=== PATIENT | male | born 1970 ===

== ENCOUNTER 2018-03-05 10:48 | Emergency (ER) | payer OTHER ==
[2018-03-05 10:52] VITALS: BMI 25.7
[2018-03-05 10:54] VITALS: O2SAT 98
[2018-03-05] MEDS ORDERED: Sodium Chloride 0.9% 1,000 ML IV STA (11:13)
--- NOTE | 2018-03-05 11:22 | ED PDOC ---
HPI: General Adult Time Seen by Provider: 03/05/18 11:02 Chief Complaint (Nursing): Weakness/Neurological Deficit Chief Complaint (Provider): Weakness History Per: Patient History/Exam Limitations: no limitations Onset/Duration Of Symptoms: Intermittent Episodes (x2 years) Current Symptoms Are (Timing): Intermittent Episodes Additional Complaint(s): Shawn Bullard is a 47 year old male presenting for evaluation of intermittent weakness x2 years. Patient states he was diagnosed with diabetes 2 years ago, but after his initial treatment did not take any medications for the past 2 years. Patient is also complaining of polyuria, polydipsia, and occasional vomiting. Past Medical History Reviewed: Historical Data, Nursing Documentation, Vital Signs Vital Signs: Last Vital Signs Temp 97.9 F 03/05/18 10:53 Pulse 79 03/05/18 10:53 Resp 18 03/05/18 10:53 BP 151/96 H 03/05/18 10:53 Pulse Ox 98 03/05/18 10:53 - Medical History PMH: Diabetes - Surgical History Surgical History: No Surg Hx - Family History Family History: States: Unknown Family Hx - Home Medications Home Medications: Ambulatory Orders Medication Instructions Recorded metFORMIN [glucOPHAGE] 500 mg PO BID #30 tab 03/05/18 - Allergies Allergies/Adverse Reactions: Allergies Allergy/AdvReac Type Severity Reaction Status Date / Time No Known Allergies Allergy Verified 03/05/18 11:13 Review of Systems ROS Statement: Except As Marked, All Systems Reviewed And Found Negative Constitutional: Positive for: Weakness, Other (polydipsia) Gastrointestinal: Positive for: Vomiting Genitourinary Male: Positive for: Other (polyuria) Physical Exam - Reviewed Nursing Documentation Reviewed: Yes Vital Signs Reviewed: Yes - Physical Exam Appears: Positive for: Non-toxic, No Acute Distress Head Exam: Positive for: ATRAUMATIC, NORMAL INSPECTION, NORMOCEPHALIC Skin: Positive for: Normal Color, Warm, Dry. Negative for: Rash Eye Exam: Positive for: EOMI, Normal appearance, PERRL ENT: Positive for: Other (mucous membranes dry) Neck: Positive for: Normal, Painless ROM, Supple Cardiovascular/Chest: Positive for: Regular Rate, Rhythm. Negative for: Murmur Respiratory: Positive for: Normal Breath Sounds. Negative for: Respiratory Distress Gastrointestinal/Abdominal: Positive for: Normal Exam, Soft. Negative for: Tenderness Back: Positive for: Normal Inspection. Negative for: L CVA Tenderness, R CVA Tenderness, Vertebral Tenderness Extremity: Positive for: Normal ROM. Negative for: Pedal Edema, Calf Tenderness, Deformity Neurologic/Psych: Positive for: Alert, Oriented (x3). Negative for: Motor/Sensory Deficits - Laboratory Results Result Diagrams: 03/05/18 11:30 03/05/18 11:30 - ECG O2 Sat by Pulse Oximetry: 98 (RA) Pulse Ox Interpretation: Normal Medical Decision Making Medical Decision Making: Plan: Accucheck at 268 mg/dL. 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 Will obtain labs and IV fluids. Will treat accordingly. -CMP -CBC -1L NS IV at 250cc/hr -Reevaluation Scribe Attestation: Documented by Yang Tucker, acting as a scribe for Kirk De Oliveira MD. Provider Scribe Attestation: All medical record entries made by the Scribe were at my direction and personally dictated by me. I have reviewed the chart and agree that the record accurately reflects my personal performance of the history, physical exam, medical decision making, and the department course for this patient. I have also personally directed, reviewed, and agree with the discharge instructions and disposition. Disposition - Clinical Impression Clinical Impression: Diabetes mellitus - Patient ED Disposition Is Patient to be Admitted: No Counseled Patient/Family Regarding: Studies Performed, Diagnosis, Need For Followup, Rx Given - Disposition Referrals: [facility] [Outside] Disposition: Routine/Home Disposition Time: 12:28 Condition: FAIR Prescriptions: metFORMIN [glucOPHAGE] 500 mg PO BID #30 tab Instructions: Type 2 Diabetes Forms: [employer] (Albanian) Print Language: MAURITANIAN
[2018-03-05 11:56] LABS: BASO % 0.4 % (0.0-2.0); EOS # 0.1 K/uL (0.0-0.7); EOS % 1.5 % (0.0-4.0); HEMOGLOBIN 16.9 g/dL (12.0-18.0); LYMPH # 1.6 K/uL (1.0-4.3); LYMPH % 42.8 % (20.0-40.0); MEAN CELL VOLUME 96.9 fl (80.0-94.0); MEAN CORPUSCULAR HEMOGLOBIN 32.5 pg (27.0-31.0); MEAN CORPUSCULAR HGB CONC 33.6 g/dL (33.0-37.0); MONO # 0.3 K/uL (0.0-0.8); MONO % 6.7 % (0.0-10.0); NEUT # 1.8 K/uL (1.8-7.0); NEUT % 48.6 % (50.0-75.0); NRBC % 0.7 % (0.0-0.0); RBC 5.18 Mil/uL (4.40-5.90); RED CELL DISTRIBUTION WIDTH 12.4 % (11.5-14.5); WHITE BLOOD COUNT 3.8 K/uL (4.8-10.8)
[2018-03-05 12:19] LABS: ALB/GLOB RATIO 1.1 (1.0-2.1); ALBUMIN 4.4 g/dL (3.5-5.0); ALT/SGPT 57 U/L (21-72); AST/SGOT 41 U/L (17-59); BLOOD UREA NITROGEN 19 mg/dl (9-20); GFR NON-AFRICAN AMERICAN > 60
[2018-03-05 12:52] VITALS: BP 128/76; PULSE 78; RESP 19; TEMP 97.6
== END 2018-03-05 12:53 | disposition home or self-care (01) ==
LOC: H.ER 10:48
DX: E11.9 Type 2 diabetes mellitus without complications (principal)
CPT/HCPCS: 80053; 82948; 85025; 99283; J7030

== ENCOUNTER 2018-07-30 22:59 | Inpatient (IN) | payer MEDICAID, OTHER ==
[2018-07-30 23:00] VITALS: BMI 25.7
[2018-07-30] MEDS ORDERED: Sodium Chloride 0.9% 1,000 ML IV STA (23:54)
--- NOTE | 2018-07-30 23:57 | ED PDOC ---
HPI: General Adult Time Seen by Provider: 07/30/18 23:45 Chief Complaint (Nursing): Abdominal Pain Chief Complaint (Provider): fever History Per: Patient History/Exam Limitations: no limitations Onset/Duration Of Symptoms: Days (2) Current Symptoms Are (Timing): Still Present Additional Complaint(s): 47 y/o male presents for evaluation of fever x 2 days. Associated bodyaches, abdominal pain, and nausea with 7 episodes of vomiting. + dysuria x 3 days. Denies headache, congestion, cough, chest pain, shortness of breath, palpitations, changes in bowel movements, hematuria, recent travel, sick contacts. Last dose of Tylenol taken at 15:00 Past Medical History Reviewed: Historical Data, Nursing Documentation, Vital Signs Vital Signs: Last Vital Signs Temp 102.9 F H 07/30/18 23:16 Pulse 126 H 07/30/18 23:16 Resp 18 07/30/18 23:16 BP 123/71 07/30/18 23:16 Pulse Ox 96 07/30/18 23:16 Primary Care Provider: FAMILY PROVIDER,NO - Medical History PMH: Diabetes - Surgical History Surgical History: No Surg Hx - Family History Family History: States: Unknown Family Hx - Living Arrangements Living Arrangements: With Family - Home Medications Home Medications: Ambulatory Orders Medication Instructions Recorded metFORMIN [glucOPHAGE] 500 mg PO BID #30 tab 03/05/18 - Allergies Allergies/Adverse Reactions: Allergies Allergy/AdvReac Type Severity Reaction Status Date / Time No Known Allergies Allergy Verified 03/05/18 11:13 Review of Systems ROS Statement: Except As Marked, All Systems Reviewed And Found Negative Constitutional: Positive for: Fever Gastrointestinal: Positive for: Nausea, Vomiting, Abdominal Pain Physical Exam - Reviewed Nursing Documentation Reviewed: Yes Vital Signs Reviewed: Yes - Physical Exam Appears: Positive for: Well, Non-toxic, No Acute Distress Head Exam: Positive for: ATRAUMATIC, NORMAL INSPECTION, NORMOCEPHALIC Skin: Positive for: Normal Color Eye Exam: Positive for: Normal appearance ENT: Positive for: Normal ENT Inspection Cardiovascular/Chest: Positive for: Regular Rate, Rhythm Respiratory: Positive for: Normal Breath Sounds Gastrointestinal/Abdominal: Positive for: Bowel Sounds, Soft, Tenderness (diffuse) Back: Positive for: Normal Inspection Extremity: Positive for: Normal ROM Neurological/Psych: Positive for: Awake, Alert, Oriented (x3) - Laboratory Results Result Diagrams: 07/31/18 00:10 07/31/18 00:10 - ECG ECG: Positive for: Viewed By Me (reviewed by ED attending) ECG Rhythm: Positive for: Sinus Rhythm O2 Sat by Pulse Oximetry: 96 - Radiology X-Ray: Viewed By Me X-Ray Interpretation: No Acute Disease - Progress ED Course And Treament: -cbc -cmp -lactic acid -blood cultures -urinalysis -urine culture -IV NS bolus -IV zofran -PO ibuprofen -CT abd/pelvis CT SCAN OF THE ABDOMEN AND PELVIS WITH CONTRAST. CLINICAL HISTORY: Abdominal pain. TECHNIQUE: Multiple axial and coronal CT images were obtained through the abdomen and pelvis after administration of intravenous contrast material. COMMENTS: Mild cardiomegaly. Bilateral basilar hypoventilatory pulmonary changes. 4.1x2.9 cm left ureterocele. Bilateral fat containing inguinal hernias without incarceration. Uncomplicated colonic diverticulosis. Moderate amount of fecal residue in the large bowels. Mild left hydroureteronephrosis. Diffuse thickening of the bladder suggestive of cystitis. Diffuse left urothelial thickening suggestive of an ascending urinary tract infection. Heterogeneous nephrogram of the left kidney suggestive of multifocal uncomplicated pyelonephritis without associated fluid collection or drainable abscess formation. The liver is of uniform attenuation without mass or defect. There is no intra or extrahepatic biliary ductal dilatation. The spleen is normal. The gallbladder is within normal limits. The pancreas is of normal contour and attenuation characteristics. There is no evidence of adrenal mass. There is no evidence of renal or ureteral mass. No renal or ureteral calculi are identified. There is no right hydroureter or hydronephrosis. No evidence for appendicitis. There is no bowel wall thickening. No evidence for small or large bowel obstruction. There is no evidence of abdominal ascites or lymphadenopathy. There is no evidence of intrinsic or extrinsic bladder mass. There is no pelvic ascites or lymphadenopathy. Images of the lung bases show no evidence of pleural or parenchymal mass. There are no pleural effusions. The bony structures are free of lytic or blastic lesions. IMPRESSION: Mild cardiomegaly. Bilateral basilar hypoventilatory pulmonary changes. 4.1x2.9 cm left ureterocele. Bilateral fat containing inguinal hernias without incarceration. Uncomplicated colonic diverticulosis. Moderate amount of fecal residue in the large bowels. Mild left hydroureteronephrosis. Diffuse thickening of the bladder suggestive of cystitis. Diffuse left urothelial thickening suggestive of an ascending urinary tract infection. Heterogeneous nephrogram of the left kidney suggestive of multifocal uncomplicated pyelonephritis without associated fluid collection or drainable abscess formation. IV rocephin ordered Case discussed with Dr. Braden, hospitalist on-call, for admission Disposition - Clinical Impression Clinical Impression: Sepsis, Pyelonephritis, Hyperglycemia - Patient ED Disposition Is Patient to be Admitted: Yes - Disposition Disposition Time: 02:15 Condition: FAIR
[2018-07-31 00:32] LABS: BASO # 0.1 K/uL (0.0-0.2); BASO % 0.3 % (0.0-2.0); HEMOGLOBIN 13.9 g/dL (12.0-18.0); LYMPH # 0.7 K/uL (1.0-4.3); LYMPH % 3.8 % (20.0-40.0); MEAN CELL VOLUME 90.9 fl (80.0-94.0); MEAN CORPUSCULAR HEMOGLOBIN 31.1 pg (27.0-31.0); MEAN CORPUSCULAR HGB CONC 34.3 g/dL (33.0-37.0); MEAN PLATELET VOLUME 7.6 fl (7.2-11.7); NEUT # 17.9 K/uL (1.8-7.0); NEUT % 90.9 % (50.0-75.0); PLATELET COUNT 234 K/uL (130-400); RBC 4.45 Mil/uL (4.40-5.90); WHITE BLOOD COUNT 19.6 K/uL (4.8-10.8)
[2018-07-31 00:35] LABS: URINE BACTERIA MANY (<OCC); URINE BILIRUBIN NEGATIVE (NEGATIVE); URINE BLOOD SMALL (NEGATIVE); URINE CLARITY TURBID (Clear); URINE COLOR AMBER (YELLOW); URINE GLUCOSE (UA) >=500 mg/dL (NEGATIVE); URINE LEUKOCYTE ESTERASE LARGE Leu/uL (Negative); URINE PROTEIN 100 mg/dL (NEGATIVE); WBC CLUMPS FEW /hpf
[2018-07-31 00:41] LABS: ALT/SGPT 22 U/L (21-72); AST/SGOT 24 U/L (17-59); BLOOD UREA NITROGEN 15 mg/dl (9-20); CALCIUM 8.5 mg/dL (8.4-10.2); GFR NON-AFRICAN AMERICAN > 60; LIPASE 52 U/L (23-300)
[2018-07-31] MEDS ORDERED: Iohexol 300 100 ML IJ ONE (01:09)
[2018-07-31] MEDS ORDERED: Sodium Chloride 0.9% 50 ML IV ONE (01:09)
[2018-07-31 01:25] LABS: LYMPHOCYTE 3 % (20-50); MONOCYTE 6 % (0-10); NEUTROPHIL 91 % (42-75); TOTAL CELLS COUNTED 100
[2018-07-31 01:26] LABS: PLATELET ESTIMATE NORMAL (NORMAL)
[2018-07-31] MEDS ORDERED: cefTRIAXone (Rocephin) 1 gm Inj ONE (02:19)
[2018-07-31] MEDS ORDERED: Sodium Chloride 0.9% 1,000 ML IV STA (02:21)
[2018-07-31] MEDS ORDERED: Sodium Chloride 0.9% 1,000 ML IV SCH ×2 (02:30→06:15)
[2018-07-31] MEDS ORDERED: Glucagon Recombinant 1 mg Inj IM PRN (02:54)
[2018-07-31] MEDS ORDERED: Dextrose 50% SYRINGE Inj (50 ml) IV PRN (02:54)
--- NOTE | 2018-07-31 03:03 | CP.PCM.HP ---
<Joann Melchor - Last Filed: 07/31/18 03:19> History of Present Illness - History of Present Illness History of Present Illness: CC: n/v, fever and abd pain HPI: 47 YO Male with PMHx of NIDDM presents to the ED for n/v, fevers and abdominal pain. Patient states that his symptoms initially started with dysuria and urinary frequency 5 days ago, he ignored them and they persisted. In the past 48 hrs, he started having fevers and chills throughout the day, and eventually started throwing up (2x thus far NBNB, food) and started having suprapubic pain. He said his symptom persisted and he started feeling fatigue and generalized body aches. No similar symptoms in the past, no hospitalizations. Denies chest pain, dyspnea, cough, palpitations. Voyce [id number] PMhx: NIDDM SurgHx: denies FHx: mother with DM SHx: , by bedside, denies ETOH, smoking and illicit drug use NKDA Meds: Metformin 500mg po BID Present on Admission - Present on Admission Any Indicators Present on Admission: No Review of Systems - Constitutional Constitutional: Chills, Fever, Malaise - Cardiovascular Cardiovascular: absent: Chest Pain, Dyspnea, Palpitations - Respiratory Respiratory: absent: Cough, Dyspnea - Gastrointestinal Gastrointestinal: Abdominal Pain, Nausea, Vomiting. absent: Diarrhea - Genitourinary Genitourinary: Difficulty Urinating, Dysuria, Urinary Frequency - Neurological Neurological: Headaches Past Patient History - Past Social History Smoking Status: Never Smoked Alcohol: None Drugs: Denies Home Situation {Lives}: With Family - ENDOCRINE/METABOLIC Hx Diabetes Mellitus Type 1: Yes - PSYCHIATRIC Hx Substance Use: No - SURGICAL HISTORY Hx Surgeries: No - ANESTHESIA Hx Anesthesia: No Meds Allergies/Adverse Reactions: Allergies Allergy/AdvReac Type Severity Reaction Status Date / Time No Known Allergies Allergy Verified 03/05/18 11:13 Physical Exam - Constitutional Appears: No Acute Distress, Other (clammy ) - Head Exam Head Exam: NORMAL INSPECTION - Eye Exam Eye Exam: EOMI, Normal appearance - ENT Exam ENT Exam: Mucous Membranes Dry - Respiratory Exam Respiratory Exam: Clear to Auscultation Bilateral, NORMAL BREATHING PATTERN. absent: Wheezes - Cardiovascular Exam Cardiovascular Exam: Tachycardia, +S1, +S2 - GI/Abdominal Exam GI & Abdominal Exam: Distended (obese ), Normal Bowel Sounds, Soft, Tenderness (suprapubic tenderness ). absent: Guarding, Rigid - Extremities Exam Extremities exam: Positive for: normal inspection. Negative for: calf ten derness, pedal edema - Back Exam Back exam: NORMAL INSPECTION. absent: CVA tenderness (L), CVA tenderness (R) - Neurological Exam Neurological exam: Alert, Oriented x3 - Psychiatric Exam Psychiatric exam: Normal Affect, Normal Mood - Skin Skin Exam: Normal Color, Warm Additional comments: chronic hyper/hypopigmentation in the lower ext b/l Results - Vital Signs Recent Vital Signs: Last Vital Signs Temp 99.6 F 07/31/18 02:22 Pulse 100 H 07/31/18 02:22 Resp 18 07/31/18 02:22 BP 90/52 L 07/31/18 02:22 Pulse Ox 97 07/31/18 02:22 - Labs Result Diagrams: 07/31/18 00:10 07/31/18 00:10 Labs: Laboratory Results - last 24 hr 07/31/18 07/31/18 07/31/18 00:10 00:10 00:10 WBC 19.6 H D RBC 4.45 Hgb 13.9 D Hct 40.5 MCV 90.9 D MCH 31.1 H MCHC 34.3 RDW 13.0 Plt Count 234 MPV 7.6 Neut % (Auto) 90.9 H Lymph % (Auto) 3.8 L Letcher % (Auto) 5.0 Eos % (Auto) 0.0 Baso % (Auto) 0.3 Neut # (Auto) 17.9 H Lymph # (Auto) 0.7 L Letcher # (Auto) 1.0 H Eos # (Auto) 0.0 Baso # (Auto) 0.1 Neutrophils % (Manual) 91 H Lymphocytes % (Manual) 3 L Monocytes % (Manual) 6 Platelet Estimate Normal RBC Morphology Normal Sodium 134 Potassium 3.5 L Chloride 94 L Carbon Dioxide 24 Anion Gap 20 BUN 15 Creatinine 0.7 L Est GFR ( Amer) > 60 Est GFR (Non-Af Amer) > 60 Random Glucose 262 H Lactic Acid Calcium 8.5 Total Bilirubin 1.1 AST 24 ALT 22 Alkaline Phosphatase 94 Total Protein 8.2 Albumin 4.0 Globulin 4.2 H Albumin/Globulin Ratio 1.0 Lipase 52 Urine Color Urine Clarity Urine pH Ur Specific [place] Urine Protein Urine Glucose (UA) Urine Ketones Urine Blood Urine Nitrate Urine Bilirubin Urine Urobilinogen Ur Leukocyte Esterase Urine RBC (Auto) Urine WBC Clumps (Auto) Urine Microscopic WBC Urine Bacteria Influenza Typ A,B (EIA) Negative for flu a/b 07/31/18 07/31/18 00:10 00:10 WBC RBC Hgb Hct MCV MCH MCHC RDW Plt Count MPV Neut % (Auto) Lymph % (Auto) Letcher % (Auto) Eos % (Auto) Baso % (Auto) Neut # (Auto) Lymph # (Auto) Letcher # (Auto) Eos # (Auto) Baso # (Auto) Neutrophils % (Manual) Lymphocytes % (Manual) Monocytes % (Manual) Platelet Estimate RBC Morphology Sodium Potassium Chloride Carbon Dioxide Anion Gap BUN Creatinine Est GFR ( Amer) Est GFR (Non-Af Amer) Random Glucose Lactic Acid 1.6 Calcium Total Bilirubin AST ALT Alkaline Phosphatase Total Protein Albumin Globulin Albumin/Globulin Ratio Lipase Urine Color Christelle Urine Clarity Turbid Urine pH 6.0 Ur Specific [place] 1.029 Urine Protein 100 Urine Glucose (UA) >=500 Urine Ketones 20 Urine Blood Small Urine Nitrate Negative Urine Bilirubin Negative Urine Urobilinogen 4.0 Ur Leukocyte Esterase Large Urine RBC (Auto) 12 H Urine WBC Clumps (Auto) Few H Urine Microscopic WBC 1628 H Urine Bacteria Many H Influenza Typ A,B (EIA) Assessment & Plan - Assessment and Plan (Free Text) Assessment: Assessment/Plan: 47 YO Male with PMHx of NIDDM is admitted for acute pylonephrtis and sepsis. Sepsis -likely 2/2 to UTI/pylo -fever, tachycardia, leukocytosis with known source of infection -c/w IV fluids -c/w Antibiotics for UTI sepsis-will start Unasyn to cover for gram + and gram - -adjust abx once cx are back -ID consulted, follow up recs -procalcitonin ordered, follow up Acute pyelonephritis -CT abd and pelvis sig for left kidney suggestive of multifocal uncomplicated pyelonephritis without associated fluid collection or drainable abscess, Mild left hydroureteronephrosis. -urology consulted; follow up recs -IV fluids -IV antibiotics -pain management NIDDM -chronic -follow up hbA1c level -hold Metformin now given contrast -start low dose insulin sliding scale -hypoglycemia protocol Hypokalemia -mild -will replace PO -follow up DVT prolx -Lovenox SC <Ra Braden A - Last Filed: 07/31/18 04:38> Results - Vital Signs Recent Vital Signs: Last Vital Signs Temp 99.6 F 07/31/18 02:22 Pulse 100 H 07/31/18 02:22 Resp 18 07/31/18 02:22 BP 90/52 L 07/31/18 02:22 Pulse Ox 97 07/31/18 02:22 - Labs Result Diagrams: 07/31/18 00:10 07/31/18 00:10 Labs: Laboratory Results - last 24 hr 07/31/18 07/31/18 07/31/18 00:10 00:10 00:10 WBC 19.6 H D RBC 4.45 Hgb 13.9 D Hct 40.5 MCV 90.9 D MCH 31.1 H MCHC 34.3 RDW 13.0 Plt Count 234 MPV 7.6 Neut % (Auto) 90.9 H Lymph % (Auto) 3.8 L Letcher % (Auto) 5.0 Eos % (Auto) 0.0 Baso % (Auto) 0.3 Neut # (Auto) 17.9 H Lymph # (Auto) 0.7 L [place] # (Auto) 1.0 H Eos # (Auto) 0.0 Baso # (Auto) 0.1 Neutrophils % (Manual) 91 H Lymphocytes % (Manual) 3 L Monocytes % (Manual) 6 Platelet Estimate Normal RBC Morphology Normal Sodium 134 Potassium 3.5 L Chloride 94 L Carbon Dioxide 24 Anion Gap 20 BUN 15 Creatinine 0.7 L Est GFR ( Amer) > 60 Est GFR (Non-Af Amer) > 60 Random Glucose 262 H Lactic Acid Calcium 8.5 Total Bilirubin 1.1 AST 24 ALT 22 Alkaline Phosphatase 94 Total Protein 8.2 Albumin 4.0 Globulin 4.2 H Albumin/Globulin Ratio 1.0 Lipase 52 Urine Color Urine Clarity Urine pH Ur Specific [place] Urine Protein Urine Glucose (UA) Urine Ketones Urine Blood Urine Nitrate Urine Bilirubin Urine Urobilinogen Ur Leukocyte Esterase Urine RBC (Auto) Urine WBC Clumps (Auto) Urine Microscopic WBC Urine Bacteria Influenza Typ A,B (EIA) Negative for flu a/b 07/31/18 07/31/18 00:10 00:10 WBC RBC Hgb Hct MCV MCH MCHC RDW Plt Count MPV Neut % (Auto) Lymph % (Auto) Letcher % (Auto) Eos % (Auto) Baso % (Auto) Neut # (Auto) Lymph # (Auto) [place] # (Auto) Eos # (Auto) Baso # (Auto) Neutrophils % (Manual) Lymphocytes % (Manual) Monocytes % (Manual) Platelet Estimate RBC Morphology Sodium Potassium Chloride Carbon Dioxide Anion Gap BUN Creatinine Est GFR ( Amer) Est GFR (Non-Af Amer) Random Glucose Lactic Acid 1.6 Calcium Total Bilirubin AST ALT Alkaline Phosphatase Total Protein Albumin Globulin Albumin/Globulin Ratio Lipase Urine Color Christelle Urine Clarity Turbid Urine pH 6.0 Ur Specific [place] 1.029 Urine Protein 100 Urine Glucose (UA) >=500 Urine Ketones 20 Urine Blood Small Urine Nitrate Negative Urine Bilirubin Negative Urine Urobilinogen 4.0 Ur Leukocyte Esterase Large Urine RBC (Auto) 12 H Urine WBC Clumps (Auto) Few H Urine Microscopic WBC 1628 H Urine Bacteria Many H Influenza Typ A,B (EIA) Attending/Attestation - Attestation I have personally seen and examined this patient.: Yes I have fully participated in the care of the patient.: Yes I have reviewed all pertinent clinical information: Yes Notes (Text): 07/31/18 04:24 I saw, examined and discussed this patient with Dr Melchor. I agree with the assessment and plan outlined which reflect my direct input. This is a 47 years old male with hx of DM II and has had urinary retention 2 weeks prior to this admission which appeared to have improved. Over the past 5 days he is with dysuria and frequency, with fever, vomiting and lower abdominal pain within the past [address] scan showed evidence of Pyelonephritis, Cystitis and Hydroureteronephrosis. The patient has Sepsis evident by Leucocytosis, Fever, Tachycardia and Pyelonephritis Follow blood and Urine cultures ID consulted For Pyelonephritis and Cystitis with a negative Nitrite Urinalysis, We will treat with Unasyn and Cefepime Consult Urology for Left Hydroureteronephrosis Treat DM II and Hypokalemia Ra Braden MD
[2018-07-31] MEDS ORDERED: Potassium Chloride 20 mEq ER Tab PO ONE (03:16)
[2018-07-31] MEDS: Sodium Chloride 0.9% 1,000 ML IV SCH ×6 (03:35→23:30)
[2018-07-31 06:14] LABS: BASO % 0.2 % (0.0-2.0); EOS % 0.1 % (0.0-4.0); HEMOGLOBIN 12.3 g/dL (12.0-18.0); LYMPH # 1.2 K/uL (1.0-4.3); LYMPH % 8.5 % (20.0-40.0); MEAN CELL VOLUME 90.9 fl (80.0-94.0); MEAN CORPUSCULAR HEMOGLOBIN 31.7 pg (27.0-31.0); MEAN CORPUSCULAR HGB CONC 34.9 g/dL (33.0-37.0); MEAN PLATELET VOLUME 7.3 fl (7.2-11.7); MONO # 0.7 K/uL (0.0-0.8); MONO % 5.1 % (0.0-10.0); NEUT # 11.8 K/uL (1.8-7.0); NEUT % 86.1 % (50.0-75.0); RBC 3.87 Mil/uL (4.40-5.90); RED CELL DISTRIBUTION WIDTH 12.7 % (11.5-14.5); WHITE BLOOD COUNT 13.7 K/uL (4.8-10.8)
[2018-07-31 06:24] LABS: BLOOD UREA NITROGEN 13 mg/dl (9-20); CALCIUM 7.4 mg/dL (8.4-10.2); GFR NON-AFRICAN AMERICAN > 60
[2018-07-31] MEDS: Enoxaparin 40 mg Syringe SC SCH (08:57)
[2018-07-31] MEDS: Insulin Regular 100 units/ml SC SCH ×4 (09:00→22:32)
[2018-07-31] MEDS: Cefepime 2 GM in Sodium Chloride 0.9% 100 ML IVPB SCH ×2 (10:47→20:49)
--- NOTE | 2018-07-31 11:19 | RAD ---
Date of service: 07/31/2018 HISTORY: admit COMPARISON: No prior. TECHNIQUE: 1 view obtained. FINDINGS: LUNGS: No active pulmonary disease. PLEURA: No significant pleural effusion identified, no pneumothorax apparent. CARDIOVASCULAR: No aortic atherosclerotic calcification present. Normal cardiac size. No pulmonary vascular congestion. OSSEOUS STRUCTURES: No significant abnormalities. VISUALIZED UPPER ABDOMEN: Normal. OTHER FINDINGS: None. IMPRESSION: No active disease.
--- NOTE | 2018-07-31 11:48 | CARD ---
APPROVED REPORT Date of service: 07/31/2018 EKG Measurement Heart [id number] <Conclusion> Normal sinus rhythm Normal ECG
--- NOTE | 2018-07-31 11:58 | CT ---
Date of service: 07/31/2018 PROCEDURE: CT Abdomen and Pelvis with contrast HISTORY: fever, abd pain, vomiting COMPARISON: None. TECHNIQUE: Contrast dose: 90 mL Omnipaque 300 Radiation dose: Total exam DLP = 592.86 mGy-cm. This CT exam was performed using one or more of the following dose reduction techniques: Automated exposure control, adjustment of the mA and/or kV according to patient size, and/or use of iterative reconstruction technique. FINDINGS: LOWER THORAX: Unremarkable. LIVER: Mild hepatomegaly. Smooth contour. No mass. No biliary dilatation. Normal attenuation. GALLBLADDER AND BILE DUCTS: Unremarkable. PANCREAS: Unremarkable. No gross lesion or ductal dilatation. SPLEEN: Unremarkable. ADRENALS: Unremarkable. No mass. KIDNEYS AND URETERS: Multiple focal areas of poor cortical enhancement in the left kidney consistent with pyelonephritis. No abscess. No hydronephrosis. Mild left hydroureter. There is a left ureterocele protruding into the urinary bladder, measuring approximately 4.1 cm at the current level of distention. There is a suspected small right ureterocele as well. No right pyelonephritis. No right hydroureter. There is a small simple cyst in the upper pole right kidney measuring 10 mm. There is no renal calculus. VASCULATURE: Unremarkable. No aortic aneurysm. No aortic atherosclerotic calcification or mural plaque present. BOWEL: Unremarkable. No obstruction. No gross mural thickening. APPENDIX: Normal appendix. PERITONEUM: No ascites or pneumoperitoneum. Umbilical hernia containing mesenteric fat with mild protrusion of the apex of the sigmoid loop into the hernia without full herniation.. LYMPH NODES: Unremarkable. No enlarged lymph nodes. BLADDER: Left ureterocele and probable small right ureterocele.. Thickened bladder wall anteriorly consistent with cystitis. No perivesical inflammatory change noted. No mass identified. REPRODUCTIVE: Normal prostate BONES: No acute fracture. OTHER FINDINGS: None. IMPRESSION: Left pyelonephritis. Cystitis. Probable bilateral ureterocele. Mild left hydroureter without hydronephrosis. Additional nonacute findings as above. The preliminary findings for this examination were reported by [facility] Radiology at 1:50 a.m. on 07/31/2018. There is concurrence of this report with the preliminary findings.
--- NOTE | 2018-07-31 12:00 | CP.PCM.PN ---
Subjective - Date & Time of Evaluation Date of Evaluation: 07/31/18 Time of Evaluation: 11:57 - Subjective Subjective: Pt examined chart reviewed.A left pylo congenital ureterovele bilat. Suggest Since pt is improving clinically await C&S results adjust antibiotics accordingly. Refer for urological eval of ureterocele on discharge. Will not re eval. unless called. Bakari Objective - Vital Signs/Intake and Output Vital Signs (last 24 hours): Temp Pulse Resp BP Pulse Ox 98.1 F 82 20 97/64 L 96 07/31/18 08:25 07/31/18 08:25 07/31/18 08:25 07/31/18 08:25 07/31/18 08:25 - Medications Medications: Current Medications Acetaminophen (Tylenol 325mg Tab) 650 mg PO Q6 PRN PRN Reason: Headache Acetaminophen (Tylenol 325mg Tab) 650 mg PO Q6 PRN PRN Reason: Fever >100.4 F Dextrose (Dextrose 50% Inj) 0 ml IV STAT PRN; Protocol PRN Reason: Hypoglycemia Protocol Dextrose (Glutose 15) 0 gm PO ONCE PRN; Protocol PRN Reason: Hypoglycemia Protocol Enoxaparin Sodium (Lovenox) 40 mg SC DAILY [facility]; Protocol Last Admin: 07/31/18 08:57 Dose: Not Given Glucagon (Glucagen Diagnostic Kit) 0 mg IM STAT PRN; Protocol PRN Reason: Hypoglycemia Protocol Sodium Chloride (Sodium Chloride 0.9%) 1,000 mls @ 999 mls/hr IV .Q1H1M [facility] Stop: 08/01/18 02:46 Last Admin: 07/31/18 03:35 Dose: 999 mls/hr Ampicillin Sodium/Sulbactam (Sodium 3 gm/ Sodium Chloride) 100 mls @ 100 mls/hr IVPB Q6 [facility]; Protocol Last Admin: 07/31/18 10:52 Dose: 100 mls/hr Cefepime HCl 2 gm/ Sodium (Chloride) 100 mls @ 100 mls/hr IVPB Q12 [facility]; [place] col Last Admin: 07/31/18 10:47 Dose: 100 mls/hr Sodium Chloride (Sodium Chloride 0.9%) 1,000 mls @ 120 mls/hr IV .Q8H20M [facility] Stop: 07/31/18 14:34 Last Admin: 07/31/18 07:00 Dose: 120 mls/hr Insulin Detemir (Levemir) 6 units SC HS [facility] Insulin Human Regular (Humulin R) 0 units SC ACHS [facility]; Protocol Ketorolac Tromethamine (Toradol) 30 mg IVP Q6 PRN PRN Reason: Pain, moderate (4-7) Morphine Sulfate (Morphine) 2 mg IVP Q6 PRN PRN Reason: Pain, severe (8-10) Ondansetron HCl (Zofran Inj) 4 mg IVP Q6 PRN PRN Reason: Nausea/Vomiting - Labs Labs: 07/31/18 06:00 07/31/18 06:00
[2018-07-31] MEDS ORDERED: Insulin Detemir 100 Units/ml Inj SC SCH (22:00)
[2018-08-01] MEDS: Sodium Chloride 0.9% 1,000 ML IV SCH ×3 (00:30→02:25)
[2018-08-01] MEDS: Cefepime 2 GM in Sodium Chloride 0.9% 100 ML IVPB SCH (08:11)
[2018-08-01] MEDS: Enoxaparin 40 mg Syringe SC SCH (08:12)
[2018-08-01] MEDS: Insulin Regular 100 units/ml SC SCH ×4 (08:13→21:34)
--- NOTE | 2018-08-01 09:28 | CARD ---
APPROVED REPORT Date of service: 08/01/2018 EXAM: Two-dimensional and M-mode echocardiogram with Doppler and color Doppler. Other Information Quality : GoodRhythm : NSR INDICATION Infection: 2D DIMENSIONS IVSd0.91 (0.7-1.1cm)LVDd4.87 (3.9-5.9cm) LVOT Diameter2.17 (1.8-2.4cm)PWd0.77 (0.7-1.1cm) IVSs1.40 (0.8-1.2cm)LVDs3.53 (2.5-4.0cm) FS (%) 27.5 %PWs1.22 (0.8-1.2cm) M-Mode DIMENSIONS Left Atrium (MM)4.38 (2.5-4.0cm)IVSd0.77 (0.7-1.1cm) Aortic Root3.61 (2.2-3.7cm)LVDd5.90 (4.0-5.6cm) Aortic Cusp Exc.2.43 (1.5-2.0cm)PWd0.94 (0.7-1.1cm) IVSs1.38 cmFS (%) 36 % LVDs3.78 (2.0-3.8cm)PWs1.24 cm Aortic Valve AoV Peak Xlkuvuak758.6cm/sAoV VTI26.2cmAO Peak GR.9mmHg LVOT Peak Fvbtoowh130.8cm/sLVOT VTI20.33cmAO Mean GR.5mmHg JEFFREY (VMAX)1.49kh1XID (VTI)1.44cm2 Mitral Valve MV E Nlpcdmun30.6cm/sMV DECEL QFNS169byJR A Ejmhsbvv74.3cm/s MV UHJ35vpO/A ratio0.8MVA (PHT)3.52cm2 TDI Lateral E' Peak V10.43cm/sMedial E' Peak V8.39cm/sE/Lateral E'6.8 E/Medial E'8.4 Tricuspid Valve TR Peak Bgqajved641mj/sRAP BXDJMUGH74mqBqLL Peak Gr.22mmHg RRPB10pkKe LEFT VENTRICLE The left ventricle is normal size. There is normal left ventricular wall thickness. The left ventricular systolic function is normal. The estimated ejection fraction is 55-60% No regional wall motion abnormalities noted.. Transmitral Doppler flow pattern is Grade I-abnormal relaxation pattern. No left ventricle thrombus noted on this study. There is no ventricular septal defect visualized. There is no left ventricular aneurysm. There is no mass noted in the left ventricle. RIGHT VENTRICLE The right ventricle is normal size. There is normal right ventricular wall thickness. The right ventricular systolic function is normal. ATRIA The left atrium is mildly dilated. The right atrium size is normal. The interatrial septum is intact with no evidence for an atrial septal defect. AORTIC VALVE The aortic valve is normal in structure. No aortic regurgitation is present. There is no aortic valvular stenosis. There is no aortic valvular vegetation. MITRAL VALVE The mitral valve is normal in structure. There is no evidence of mitral valve prolapse. There is no mitral valve stenosis. There is trace mitral valve regurgitation noted. TRICUSPID VALVE The tricuspid valve is normal in structure. There is mild tricuspid valve regurgitation noted. RVSP is calculated at 28 mm Hg. There is no tricuspid valve prolapse or vegetation. There is no tricuspid valve stenosis. PULMONIC VALVE The pulmonary valve is normal in structure. There is no pulmonic valvular regurgitation. There is no pulmonic valvular stenosis. GREAT VESSELS The aortic root is normal in size. The ascending aorta is normal in size. The pulmonary artery is normal. The IVC is normal in size and collapses >50% with inspiration. PERICARDIAL EFFUSION There is no pericardial effusion. There is no pleural effusion. <Conclusion> The estimated ejection fraction is 55-60% Transmitral Doppler flow pattern is Grade I-abnormal relaxation pattern. The left atrium is mildly dilated. There is trace mitral valve regurgitation noted. There is mild tricuspid valve regurgitation noted. RVSP is calculated at 28 mm Hg. No evidence of vegetations on this study. Correlate clinically.
--- NOTE | 2018-08-01 10:25 | CP.PCM.PN ---
Subjective - Date & Time of Evaluation Date of Evaluation: 08/01/18 Time of Evaluation: 10:23 - Subjective Subjective: Patient seen and examined at bedside. Denies any complaints. Denies dysuria, frequency, urgency, chills, abdominal pain. Tolerating PO without vomitus. No acute overnight events. Hemodynamically stbale. Objective - Vital Signs/Intake and Output Vital Signs (last 24 hours): Temp Pulse Resp BP Pulse Ox 110.4 F H 85 20 120/79 96 08/01/18 08:10 08/01/18 07:40 08/01/18 07:40 08/01/18 07:40 08/01/18 07:40 - Medications Medications: Current Medications Acetaminophen (Tylenol 325mg Tab) 650 mg PO Q6 PRN PRN Reason: Headache Acetaminophen (Tylenol 325mg Tab) 650 mg PO Q6 PRN PRN Reason: Fever >100.4 F Last Admin: 08/01/18 08:10 Dose: 650 mg Dextrose (Dextrose 50% Inj) 0 ml IV STAT PRN; Protocol PRN Reason: Hypoglycemia Protocol Dextrose (Glutose 15) 0 gm PO ONCE PRN; Protocol PRN Reason: Hypoglycemia Protocol Enoxaparin Sodium (Lovenox) 40 mg SC DAILY [facility]; Protocol Last Admin: 08/01/18 08:12 Dose: 40 mg Glucagon (Glucagen Diagnostic Kit) 0 mg IM STAT PRN; Protocol PRN Reason: Hypoglycemia Protocol Cefepime HCl 2 gm/ Sodium (Chloride) 100 mls @ 100 mls/hr IVPB Q12 [facility]; Protocol Last Admin: 08/01/18 08:11 Dose: 100 mls/hr Insulin Detemir (Levemir) 10 units SC [facility] Insulin Human Regular (Humulin R) 0 units SC [facility]; Protocol Last Admin: 08/01/18 08:13 Dose: 2 units Ketorolac Tromethamine (Toradol) 30 mg IVP Q6 PRN PRN Reason: Pain, moderate (4-7) Last Admin: 07/31/18 20:30 Dose: 30 mg Morphine Sulfate (Morphine) 2 mg IVP Q6 PRN PRN Reason: Pain, severe (8-10) Last Admin: 07/31/18 16:50 Dose: 2 mg Ondansetron HCl (Zofran Inj) 4 mg IVP Q6 PRN PRN Reason: Nausea/Vomiting Last Admin: 08/01/18 08:17 Dose: 4 mg - Labs Labs: 07/31/18 06:00 07/31/18 06:00 - Constitutional Appears: Non-toxic, No Acute Distress - Head Exam Head Exam: NORMAL INSPECTION - Eye Exam Eye Exam: Normal appearance - ENT Exam ENT Exam: Mucous Membranes Moist - Respiratory Exam Respiratory Exam: Clear to Ausculation Bilateral, NORMAL BREATHING PATTERN. absent: Accessory Muscle Use, Chest Wall Tenderness, Decreased Breath Sounds, Prolonged Expiratory Phase, Rales, Rhonchi, Wheezes, Respiratory Distress, Stridor - Cardiovascular Exam Cardiovascular Exam: REGULAR RHYTHM, +S1, +S2 - GI/Abdominal Exam GI & Abdominal Exam: Soft, Normal Bowel Sounds. absent: Distended, Firm, Guarding, Rigid, Tenderness, Rebound - Extremities Exam Extremities Exam: Full ROM, Normal Capillary Refill, Normal Inspection. absent: Calf Tenderness, Joint Swelling, Pedal Edema, Tenderness Additional comments: Chronic lower extremity skin changes present on admission. - Neurological Exam Neurological Exam: Alert, Awake, Oriented x3 - Psychiatric Exam Psychiatric exam: Normal Affect, Normal Mood - Skin Skin Exam: Dry, Intact, Normal Color, Warm Assessment and Plan - Assessment and Plan (Free Text) Assessment: 47 yo Male with history of NIDDM is admitted for acute pylonephrtis and sepsis. During hospital admission, patient has been recieving Cefepime, Blood cultures evident for gram negative rods, pending organism and sensitivities. Echocardiogram performed - no vegetations noted, EF 55-60%. Once organism and sensitivies are available, will change antibiotic therapy as appropriate. Discharge planning- will need 10 days of antibiotic therapy outpatient. Plan: Sepsis -likely secondary to UTI/pylo -c/w IV fluids -c/w Cefepime - Blood cultures - growing Gram negative Fadi; f/u organism and sensitivities -ID consulted, follow up recs -procalcitonin - 2.78 - ECHO: no vegetations noted; Acute pyelonephritis -CT abd and pelvis sig for left kidney suggestive of multifocal uncomplicated p yelonephritis without associated fluid collection or drainable abscess, Mild left hydroureteronephrosis. -urology consulted for ureterocele- no intervention at this time, can be followed outpatient. -IV fluids -IV antibiotics -pain management NIDDM -chronic -hbA1c- 9.3 -hold Metformin now given contrast -start low dose insulin sliding scale - Levemir 10 u SC -hypoglycemia protocol Hypokalemia -mild -will replace PO -follow up DVT prolx -Lovenox SC
--- NOTE | 2018-08-01 11:17 | CP.PCM.CON ---
History of Present Illness - History of Present Illness History of Present Illness: 47 y old with NIDDM with symptoms of dysuria for the past week, which are now better. Past Patient History - Past Medical History & Family History Past Medical History?: Yes - Past Social History Smoking Status: Never Smoked - ENDOCRINE/METABOLIC Hx Diabetes Mellitus Type 1: Yes - MUSCULOSKELETAL/RHEUMATOLOGICAL Hx Falls: No - PSYCHIATRIC Hx Substance Use: No - SURGICAL HISTORY Hx Surgeries: No - ANESTHESIA Hx Anesthesia: No Meds Allergies/Adverse Reactions: Allergies Allergy/AdvReac Type Severity Reaction Status Date / Time No Known Allergies Allergy Verified 03/05/18 11:13 - Medications Medications: Current Medications Acetaminophen (Tylenol 325mg Tab) 650 mg PO Q6 PRN PRN Reason: Headache Acetaminophen (Tylenol 325mg Tab) 650 mg PO Q6 PRN PRN Reason: Fever >100.4 F Last Admin: 08/01/18 08:10 Dose: 650 mg Dextrose (Dextrose 50% Inj) 0 ml IV STAT PRN; Protocol PRN Reason: Hypoglycemia Protocol Dextrose (Glutose 15) 0 gm PO ONCE PRN; Protocol PRN Reason: Hypoglycemia Protocol Enoxaparin Sodium (Lovenox) 40 mg SC DAILY [facility]; Protocol Last Admin: 08/01/18 08:12 Dose: 40 mg Glucagon (Glucagen Diagnostic Kit) 0 mg IM STAT PRN; Protocol PRN Reason: Hypoglycemia Protocol Cefepime HCl 2 gm/ Sodium (Chloride) 100 mls @ 100 mls/hr IVPB Q12 [facility]; Protocol Last Admin: 08/01/18 08:11 Dose: 100 mls/hr Insulin Detemir (Levemir) 10 units SC [facility] Insulin Human Regular (Humulin R) [address] [facility]; Protocol Last Admin: 08/01/18 08:13 Dose: 2 units Ketorolac Tromethamine (Toradol) 30 mg IVP Q6 PRN PRN Reason: Pain, moderate (4-7) Last Admin: 07/31/18 20:30 Dose: 30 mg Morphine Sulfate (Morphine) 2 mg IVP Q6 PRN PRN Reason: Pain, severe (8-10) Last Admin: 07/31/18 16:50 Dose: 2 mg Ondansetron HCl (Zofran Inj) 4 mg IVP Q6 PRN PRN Reason: Nausea/Vomiting Last Admin: 08/01/18 08:17 Dose: 4 mg Physical Exam - GI/Abdominal Exam Additional comments: CVA tenderness + Results - Vital Signs Recent Vital Signs: Last Vital Signs Temp 110.4 F H 08/01/18 08:10 Pulse 85 08/01/18 07:40 Resp 20 08/01/18 07:40 BP 120/79 08/01/18 07:40 Pulse Ox 96 08/01/18 07:40 - Labs Result Diagrams: 07/31/18 06:00 07/31/18 06:00 Labs: Laboratory Results - last 24 hr 07/31/18 07/31/18 07/31/18 00:10 03:02 06:00 POC Glucose (mg/dL) Hemoglobin A1c 9.3 H Procalcitonin 2.78 H B-Hydroxybutyrate 0.22 07/31/18 07/31/18 07/31/18 11:55 16:07 22:00 POC Glucose (mg/dL) 314 H 282 H 236 H Hemoglobin A1c Procalcitonin B-Hydroxybutyrate 08/01/18 05:38 POC Glucose (mg/dL) 208 H Hemoglobin A1c Procalcitonin B-Hydroxybutyrate Assessment & Plan - Assessment and Plan (Free Text) Assessment: Pyelonephritis with bacteremia and urine culture positive. Awaiting organism and sensitivities. Since this is a first time community acquired infection, Rocephin 2g iv od should be sufficient. d/c Cefepime
[2018-08-01 12:33] LABS: HEMOGLOBIN 13.3 g/dL (12.0-18.0); MEAN CELL VOLUME 91.7 fl (80.0-94.0); MEAN CORPUSCULAR HEMOGLOBIN 31.7 pg (27.0-31.0); MEAN CORPUSCULAR HGB CONC 34.6 g/dL (33.0-37.0); RBC 4.19 Mil/uL (4.40-5.90); WHITE BLOOD COUNT 9.4 K/uL (4.8-10.8)
[2018-08-01] MEDS ORDERED: Potassium Chloride 20 mEq/15 ml LIQ UD PO ONE (12:38)
[2018-08-01 12:47] LABS: BLOOD UREA NITROGEN 15 mg/dl (9-20); GFR NON-AFRICAN AMERICAN > 60
[2018-08-01] MEDS: cefTRIAXone 2 GM in Sodium Chloride 0.9% 100 ML IVPB SCH (13:33)
[2018-08-01] MEDS: Insulin Detemir 100 Units/ml Inj SC SCH (21:35)
[2018-08-02 00:40] VITALS: RESP 18
[2018-08-02 06:31] LABS: HEMOGLOBIN 12.6 g/dL (12.0-18.0); MEAN CELL VOLUME 90.5 fl (80.0-94.0); MEAN CORPUSCULAR HEMOGLOBIN 30.9 pg (27.0-31.0); MEAN CORPUSCULAR HGB CONC 34.1 g/dL (33.0-37.0); RBC 4.08 Mil/uL (4.40-5.90); RED CELL DISTRIBUTION WIDTH 12.9 % (11.5-14.5); WHITE BLOOD COUNT 7.3 K/uL (4.8-10.8)
[2018-08-02 06:34] LABS: BLOOD UREA NITROGEN 15 mg/dl (9-20); CALCIUM 7.7 mg/dL (8.4-10.2); GFR NON-AFRICAN AMERICAN > 60
--- NOTE | 2018-08-02 07:37 | CP.PCM.DIS ---
Provider - Provider Date of Admission: 07/31/18 02:24 Attending physician: Ra Braden Consults: 07/31/18 07:00 Infectious Disease Consult Routine Comment: Consulting Provider: Juan Carlos Sahni Consulting Physician: Juan Carlos Sahni Reason for Consult: Pylonephritis in 47YO Male with NIDDM Urology Consult Routine Comment: Consulting Provider: Stevenson Villegas Jr. Consulting Physician: Stevenson Villegas Jr. Reason for Consult: left hydroureteronephrosis, and pylonephritis Time Spent in preparation of Discharge (in minutes): 30 Hospital Course - Lab Results Lab Results: Micro Results 07/31/18 00:10 Blood-Venous Blood Culture - Final Klebsiella Pneumoniae Ssp Pneu 07/31/18 00:10 Blood-Venous Gram Stain - Final 07/31/18 00:20 Blood-Venous Blood Culture - Final Klebsiella Pneumoniae Ssp Pneu 07/31/18 00:20 Blood-Venous Gram Stain - Final 07/31/18 00:10 Urine,Clean Catch Urine Culture - Final Klebsiella Pneumoniae Ssp Pneu Most Recent Lab Values WBC 7.3 K/uL (4.8-10.8) 08/02/18 05:05 RBC 4.08 Mil/uL (4.40-5.90) L 08/02/18 05:05 Hgb 12.6 g/dL (12.0-18.0) 08/02/18 05:05 Hct 36.9 % (35.0-51.0) 08/02/18 05:05 MCV 90.5 fl (80.0-94.0) 08/02/18 05:05 MCH 30.9 pg (27.0-31.0) 08/02/18 05:05 MCHC 34.1 g/dL (33.0-37.0) 08/02/18 05:05 RDW 12.9 % (11.5-14.5) 08/02/18 05:05 Plt Count 235 K/uL (130-400) 08/02/18 05:05 MPV 7.3 fl (7.2-11.7) 07/31/18 06:00 Neut % (Auto) 86.1 % (50.0-75.0) H 07/31/18 06:00 Lymph % (Auto) 8.5 % (20.0-40.0) L 07/31/18 06:00 [place] % (Auto) 5.1 % (0.0-10.0) 07/31/18 06:00 Eos % (Auto) 0.1 % (0.0-4.0) 07/31/18 06:00 Baso % (Auto) 0.2 % (0.0-2.0) 07/31/18 06:00 Neut # (Auto) 11.8 K/uL (1.8-7.0) H 07/31/18 06:00 Lymph # (Auto) 1.2 K/uL (1.0-4.3) 07/31/18 06:00 Bladen # (Auto) 0.7 K/uL (0.0-0.8) 07/31/18 06:00 Eos # (Auto) 0.0 K/uL (0.0-0.7) 07/31/18 06:00 Baso # (Auto) 0.0 K/uL (0.0-0.2) 07/31/18 06:00 Neutrophils % (Manual) 91 % (42-75) H 07/31/18 00:10 Lymphocytes % (Manual) 3 % (20-50) L 07/31/18 00:10 Monocytes % (Manual) 6 % (0-10) 07/31/18 00:10 Platelet Estimate Normal (NORMAL) 07/31/18 00:10 RBC Morphology Normal (NORMAL) 07/31/18 00:10 Sodium 133 mmol/l (132-148) 08/02/18 05:05 Potassium 3.7 MMOL/L (3.6-5.0) 08/02/18 05:05 Chloride 99 mmol/L (98-107) 08/02/18 05:05 Carbon Dioxide 27 mmol/L (22-30) 08/02/18 05:05 Anion Gap 11 (10-20) 08/02/18 05:05 BUN 15 mg/dl (9-20) 08/02/18 05:05 Creatinine 0.5 mg/dl (0.8-1.5) L 08/02/18 05:05 Est GFR ( Amer) > 60 08/02/18 05:05 Est GFR (Non-Af Amer) > 60 08/02/18 05:05 POC Glucose (mg/dL) 191 mg/dL (65-110) H 08/02/18 05:28 Random Glucose 207 mg/dL (75-110) H 08/02/18 05:05 Hemoglobin A1c 9.3 % (4.2-6.5) H 07/31/18 00:10 Lactic Acid 1.6 mmol/L (0.7-2.1) 07/31/18 00:10 Calcium 7.7 mg/dL (8.4-10.2) L 08/02/18 05:05 Magnesium 1.9 MG/DL (1.6-2.3) 07/31/18 06:00 Total Bilirubin 1.1 mg/dl (0.2-1.3) 07/31/18 00:10 AST 24 U/L (17-59) 07/31/18 00:10 ALT 22 U/L (21-72) 07/31/18 00:10 Alkaline Phosphatase 94 U/L (38-126) 07/31/18 00:10 Total Protein 8.2 G/DL (6.3-8.2) 07/31/18 00:10 Albumin 4.0 g/dL (3.5-5.0) 07/31/18 00:10 Globulin 4.2 gm/dL (2.2-3.9) H 07/31/18 00:10 Albumin/Globulin Ratio 1.0 (1.0-2.1) 07/31/18 00:10 Lipase 52 U/L (23-300) 07/31/18 00:10 Procalcitonin 2.78 NG/ML (0.19-0.49) H 07/31/18 03:02 Urine Color Christelle (YELLOW) 07/31/18 00:10 Urine Clarity Turbid (Clear) 07/31/18 00:10 Urine pH 6.0 (5.0-8.0) 07/31/18 00:10 Ur Specific [place] 1.029 (1.003-1.030) 07/31/18 00:10 Urine Protein 100 mg/dL (NEGATIVE) 07/31/18 00:10 Urine Glucose (UA) >=500 mg/dL (NEGATIVE) 07/31/18 00:10 Urine Ketones 20 mg/dL (NEGATIVE) 07/31/18 00:10 Urine Blood Small (NEGATIVE) 05/24/19 00:10 Urine Nitrate Negative (NEGATIVE) 07/31/18 00:10 Urine Bilirubin Negative (NEGATIVE) 07/31/18 00:10 Urine Urobilinogen 4.0 mg/dL (0.2-1.0) 07/31/18 00:10 Ur Leukocyte Esterase Large Jose/uL (Negative) 07/31/18 00:10 Urine RBC (Auto) 12 /hpf (0-3) H 07/31/18 00:10 Urine WBC Clumps (Auto) Few /hpf (NONE) H 07/31/18 00:10 Urine Microscopic WBC 1628 /hpf (0-5) H 07/31/18 00:10 Urine Bacteria Many (<OCC) H 07/31/18 00:10 B-Hydroxybutyrate 0.22 mM (0.02-0.27) 07/31/18 06:00 Influenza Typ A,B (EIA) Negative for flu a/b (NEGATIVE) 07/31/18 00:10 Discharge Exam - Head Exam Head Exam: NORMAL INSPECTION Discharge Plan - Discharge Medications Prescriptions: cefTRIAXone [Rocephin] 2 gm IVPB DAILY #10 vial metFORMIN [glucOPHAGE] 850 mg PO BID #60 tab - Follow Up Plan Condition: FAIR Disposition: HOME/ ROUTINE Instructions: Urinary Tract Infection, Adult (DC), Sepsis, Adult (DC) Referrals: [facility] [Provider Group] Stevenson Villegas Jr., MD [Staff Provider] -
[2018-08-02] MEDS: cefTRIAXone 2 GM in Sodium Chloride 0.9% 100 ML IVPB SCH (08:50)
[2018-08-02] MEDS: Insulin Regular 100 units/ml SC SCH ×4 (08:52→22:06)
[2018-08-02] MEDS: Enoxaparin 40 mg Syringe SC SCH (08:53)
--- NOTE | 2018-08-02 13:43 | CP.PCM.PN ---
Subjective - Date & Time of Evaluation Date of Evaluation: 08/02/18 Time of Evaluation: 08:40 - Subjective Subjective: Patient seen and examined at bedside. Reports back and suprapubic pain. States he has not had a BM in 3 days. Objective - Vital Signs/Intake and Output Vital Signs (last 24 hours): Temp Pulse Resp BP Pulse Ox 98.2 F 75 18 116/76 97 08/02/18 07:39 08/02/18 07:39 08/02/18 07:39 08/02/18 07:39 08/02/18 07:39 Intake and Output: 08/02/18 08/02/18 06:59 18:59 Intake Total 750 Balance 750 - Medications Medications: Current Medications Acetaminophen (Tylenol 325mg Tab) 650 mg PO Q6 PRN PRN Reason: Headache Acetaminophen (Tylenol 325mg Tab) 650 mg PO Q6 PRN PRN Reason: Fever >100.4 F Last Admin: 08/01/18 08:10 Dose: 650 mg Dextrose (Dextrose 50% Inj) 0 ml IV STAT PRN; Protocol PRN Reason: Hypoglycemia Protocol Dextrose (Glutose 15) 0 gm PO ONCE PRN; Protocol PRN Reason: Hypoglycemia Protocol Enoxaparin Sodium (Lovenox) 40 mg SC DAILY [facility]; Protocol Last Admin: 08/02/18 08:53 Dose: 40 mg Glucagon (Glucagen Diagnostic Kit) 0 mg IM STAT PRN; Protocol PRN Reason: Hypoglycemia Protocol Ceftriaxone Sodium 2 gm/ (Sodium Chloride) 100 mls @ 100 mls/hr IVPB DAILY [facility]; Protocol Last Admin: 08/02/18 08:50 Dose: 100 mls/hr Insulin Detemir (Levemir) 10 units SC [facility] Last Admin: 08/01/18 21:35 Dose: 10 units Insulin Human Regular (Humulin R) 0 units SC [facility]; Protocol Last Admin: 08/02/18 08:52 Dose: 1 units Ketorolac Tromethamine (Toradol) 30 mg IVP Q6 PRN PRN Reason: Pain, moderate (4-7) Last Admin: 08/01/18 17:30 Dose: 30 mg Lactulose (Enulose) 20 gm PO DAILY PRN PRN Reason: Constipation Morphine Sulfate (Morphine) 2 mg IVP Q6 PRN PRN Reason: Pain, severe (8-10) Last Admin: 08/02/18 08:46 Dose: 2 mg Ondansetron HCl (Zofran Inj) 4 mg IVP Q6 PRN PRN Reason: Nausea/Vomiting Last Admin: 08/01/18 08:17 Dose: 4 mg - Labs Labs: 08/02/18 05:05 08/02/18 05:05 - Constitutional Appears: In Acute Distress - Eye Exam Eye Exam: Normal appearance - ENT Exam ENT Exam: Mucous Membranes Moist - Respiratory Exam Respiratory Exam: Clear to Ausculation Bilateral, NORMAL BREATHING PATTERN. absent: Accessory Muscle Use, Chest Wall Tenderness, Decreased Breath Sounds, Prolonged Expiratory Phase, Rales, Rhonchi, Wheezes, Respiratory Distress, Stridor - Cardiovascular Exam Cardiovascular Exam: +S1, +S2 - GI/Abdominal Exam GI & Abdominal Exam: Soft, Tenderness (suprapubic tenderness), Normal Bowel Sounds. absent: Distended, Firm, Guarding, Rigid, Rebound - Extremities Exam Extremities Exam: Full ROM, Normal Capillary Refill, Normal Inspection. absent: Calf Tenderness, Joint Swelling, Pedal Edema, Tenderness - Neurological Exam Neurological Exam: Alert, Awake, Oriented x3 - Psychiatric Exam Psychiatric exam: Normal Affect, Normal Mood - Skin Skin Exam: Dry, Intact, Normal Color, Warm Assessment and Plan - Assessment and Plan (Free Text) Assessment: 47 yo Male with history of NIDDM is admitted for acute pylonephrtis and sepsis. During hospital admission, patient has been recieving Cefepime, Blood cultures evident for klebsiella pneumoniae sensitive to Rocephin. Echocardiogram performed - no vegetations noted, EF 55-60%. Once organism and sensitivies are available, will change antibiotic therapy as appropriate. Discharge planning- will need 10 days of antibiotic therapy outpatient- understands that he will return to the ED to recieve Rocephin 2 g IV for a total of 10 days outpatient treatment. Plan: Sepsis -likely 2/2 to UTI/pylo -c/w IV fluids -s/p Cefepime; C/W Rocephin 2 g IV at this time (will need 10 days outpatient treatment) - Blood cultures - klebsiella pneumoniae sensitive to Rocephin -ID consulted, follow up recs - ECHO: no vegetations noted; Acute pyelonephritis -CT abd and pelvis sig for left kidney suggestive of multifocal uncomplicated pyelonephritis without associated fluid collection or drainable abscess, Mild left hydroureteronephrosis. -urology consulted for ureterocele- no intervention at this time, can be followed outpatient. -IV fluids -IV antibiotics -pain management NIDDM -chronic -hbA1c- 9.3 -hold Metformin now given contrast -start low dose insulin sliding scale - Levemir 10 u SC -hypoglycemia protocol Hypokalemia -mild -will replace PO -follow up DVT prolx -Lovenox SC
[2018-08-02] MEDS: POLYETHYLENE GLYCOL 3350 17 GM/Dose PACKET PO SCH (15:29)
[2018-08-02] MEDS: Insulin Detemir 100 Units/ml Inj SC SCH (22:06)
[2018-08-03 00:25] VITALS: PULSE 79
[2018-08-03 07:06] LABS: HEMOGLOBIN 12.7 g/dL (12.0-18.0); MEAN CELL VOLUME 89.6 fl (80.0-94.0); MEAN CORPUSCULAR HEMOGLOBIN 31.5 pg (27.0-31.0); MEAN CORPUSCULAR HGB CONC 35.1 g/dL (33.0-37.0); RBC 4.04 Mil/uL (4.40-5.90); RED CELL DISTRIBUTION WIDTH 12.8 % (11.5-14.5); WHITE BLOOD COUNT 7.4 K/uL (4.8-10.8)
[2018-08-03 07:45] LABS: BLOOD UREA NITROGEN 11 mg/dl (9-20); GFR NON-AFRICAN AMERICAN > 60
--- NOTE | 2018-08-03 08:11 | CP.PCM.DIS ---
Provider - Provider Date of Admission: 07/31/18 02:24 Attending physician: Ra Braden Consults: 07/31/18 07:00 Infectious Disease Consult Routine Comment: Consulting Provider: Juan Carlos Sahni Consulting Physician: Juan Carlos Sahni Reason for Consult: Pylonephritis in 47YO Male with NIDDM Urology Consult Routine Comment: Consulting Provider: Stevenson Villegas Jr. Consulting Physician: Stevenson Villegas Jr. Reason for Consult: left hydroureteronephrosis, and pylonephritis Time Spent in preparation of Discharge (in minutes): 30 Diagnosis - Discharge Diagnosis (1) Pyelonephritis Status: Acute Comment: -CT abd and pelvis sig for left kidney suggestive of multifocal uncomplicated pyelonephritis without associated fluid collection or drainable abscess, Mild left hydroureteronephrosis. -urology consulted for ureterocele- no intervention at this time, can be followed outpatient. -IV antibiotics - s/p Cefepime; C/W Rocephin 2 g IV at this time (will need 7 more days outpatient treatment) (2) NIDDY (non-insulin dependent diabetes mellitus in young) Status: Acute Comment: -chronic. -hbA1c- 9.3. Continue Metformin 850mg BID. Follow up outpatient. Hospital Course - Lab Results Lab Results: Micro Results 08/01/18 07:05 Blood-Venous Blood Culture - Preliminary NO GROWTH AFTER 24 HOURS 08/01/18 07:05 Blood-Venous Blood Culture - Preliminary NO GROWTH AFTER 24 HOURS 07/31/18 00:10 Blood-Venous Blood Culture - Final Klebsiella Pneumoniae Ssp Pneu 07/31/18 00:10 Blood-Venous Gram Stain - Final 07/31/18 00:20 Blood-Venous Blood Culture - Final Klebsiella Pneumoniae Ssp Pneu 07/31/18 00:20 Blood-Venous Gram Stain - Final 07/31/18 00:10 Urine,Clean Catch Urine Culture - Final Klebsiella Pneumoniae Ssp Pneu Most Recent Lab Values WBC 7.4 K/uL (4.8-10.8) 08/03/18 05:50 RBC 4.04 Mil/uL (4.40-5.90) L 08/03/18 05:50 Hgb 12.7 g/dL (12.0-18.0) 08/03/18 05:50 Hct 36.2 % (35.0-51.0) 08/03/18 05:50 MCV 89.6 fl (80.0-94.0) 08/03/18 05:50 MCH 31.5 pg (27.0-31.0) H 08/03/18 05:50 MCHC 35.1 g/dL (33.0-37.0) 08/03/18 05:50 RDW 12.8 % (11.5-14.5) 08/03/18 05:50 Plt Count 235 K/uL (130-400) 08/03/18 05:50 MPV 7.3 fl (7.2-11.7) 07/31/18 06:00 Neut % (Auto) 86.1 % (50.0-75.0) H 07/31/18 06:00 Lymph % (Auto) 8.5 % (20.0-40.0) L 07/31/18 06:00 [place] % (Auto) 5.1 % (0.0-10.0) 07/31/18 06:00 Eos % (Auto) 0.1 % (0.0-4.0) 07/31/18 06:00 Baso % (Auto) 0.2 % (0.0-2.0) 07/31/18 06:00 Neut # (Auto) 11.8 K/uL (1.8-7.0) H 07/31/18 06:00 Lymph # (Auto) 1.2 K/uL (1.0-4.3) 07/31/18 06:00 Hardeman # (Auto) 0.7 K/uL (0.0-0.8) 07/31/18 06:00 Eos # (Auto) 0.0 K/uL (0.0-0.7) 07/31/18 06:00 Baso # (Auto) 0.0 K/uL (0.0-0.2) 07/31/18 06:00 Neutrophils % (Manual) 91 % (42-75) H 07/31/18 00:10 Lymphocytes % (Manual) 3 % (20-50) L 07/31/18 00:10 Monocytes % (Manual) 6 % (0-10) 07/31/18 00:10 Platelet Estimate Normal (NORMAL) 07/31/18 00:10 RBC Morphology Normal (NORMAL) 07/31/18 00:10 Sodium 133 mmol/l (132-148) 08/03/18 05:50 Potassium 3.8 MMOL/L (3.6-5.0) 08/03/18 05:50 Chloride 96 mmol/L (98-107) L 08/03/18 05:50 Carbon Dioxide 28 mmol/L (22-30) 08/03/18 05:50 Anion Gap 13 (10-20) 08/03/18 05:50 BUN 11 mg/dl (9-20) 08/03/18 05:50 Creatinine 0.6 mg/dl (0.8-1.5) L 08/03/18 05:50 Est GFR ( Amer) > 60 08/03/18 05:50 Est GFR (Non-Af Amer) > 60 08/03/18 05:50 POC Glucose (mg/dL) 240 mg/dL (65-110) H 08/02/18 21:00 Random Glucose 165 mg/dL (75-110) H 08/03/18 05:50 Hemoglobin A1c 9.3 % (4.2-6.5) H 07/31/18 00:10 Lactic Acid 1.6 mmol/L (0.7-2.1) 07/31/18 00:10 Calcium 8.0 mg/dL (8.4-10.2) L 08/03/18 05:50 Magnesium 1.9 MG/DL (1.6-2.3) 07/31/18 06:00 Total Bilirubin 1.1 mg/dl (0.2-1.3) 07/31/18 00:10 AST 24 U/L (17-59) 07/31/18 00:10 ALT 22 U/L (21-72) 07/31/18 00:10 Alkaline Phosphatase 94 U/L (38-126) 07/31/18 00:10 Total Protein 8.2 G/DL (6.3-8.2) 07/31/18 00:10 Albumin 4.0 g/dL (3.5-5.0) 07/31/18 00:10 Globulin 4.2 gm/dL (2.2-3.9) H 07/31/18 00:10 Albumin/Globulin Ratio 1.0 (1.0-2.1) 07/31/18 00:10 Lipase 52 U/L (23-300) 07/31/18 00:10 Procalcitonin 2.78 NG/ML (0.19-0.49) H 07/31/18 03:02 Urine Color Christelle (YELLOW) 07/31/18 00:10 Urine Clarity Turbid (Clear) 07/31/18 00:10 Urine pH 6.0 (5.0-8.0) 07/31/18 00:10 Ur Specific [place] 1.029 (1.003-1.030) 07/31/18 00:10 Urine Protein 100 mg/dL (NEGATIVE) 07/31/18 00:10 Urine Glucose (UA) >=500 mg/dL (NEGATIVE) 07/31/18 00:10 Urine Ketones 20 mg/dL (NEGATIVE) 07/31/18 00:10 Urine Blood Small (NEGATIVE) 07/31/18 00:10 Urine Nitrate Negative (NEGATIVE) 07/31/18 00:10 Urine Bilirubin Negative (NEGATIVE) 07/31/18 00:10 Urine Urobilinogen 4.0 mg/dL (0.2-1.0) 07/31/18 00:10 Ur Leukocyte Esterase Large Jose/uL (Negative) 07/31/18 00:10 Urine RBC (Auto) 12 /hpf (0-3) H 07/31/18 00:10 Urine WBC Clumps (Auto) Few /hpf (NONE) H 07/31/18 00:10 Urine Microscopic WBC 1628 /hpf (0-5) H 07/31/18 00:10 Urine Bacteria Many (<OCC) H 07/31/18 00:10 B-Hydroxybutyrate 0.22 mM (0.02-0.27) 07/31/18 06:00 Influenza Typ A,B (EIA) Negative for flu a/b (NEGATIVE) 07/31/18 00:10 - Hospital Course Hospital Course: 47 yo Male with history of NIDDM is admitted for acute pylonephrtis and sepsis. During hospital admission, patient has been recieving Cefepime, Blood cultures evident for klebsiella pneumoniae sensitive to Rocephin. Echocardiogram performed - no vegetations noted, EF 55-60%. Discharge, patient will return tomorrow to [facility] center with prescription for Rocephin 2 g IV for a total of 7 more days of outpatient treatment. Discharge Exam - Head Exam Head Exam: NORMAL INSPECTION - Eye Exam Eye Exam: Normal appearance - ENT Exam ENT Exam: Mucous Membranes Moist - Respiratory Exam Respiratory Exam: Clear to PA & Lateral, NORMAL BREATHING PATTERN, UNREMARKABLE. absent: Accessory Muscle Use, Chest Wall Tenderness, Decreased Breath Sounds, Prolonged Expiratory Phase, Rales, Rhonchi, Wheezes, Respiratory Distress, Stridor - Cardiovascular Exam Cardiovascular Exam: +S1, +S2 - GI/Abdominal Exam GI & Abdominal Exam: Normal Bowel Sounds, Soft, Unremarkable. absent: Diminished Bowel Sounds, Distended, Firm, Guarding, Hernia, Rebound, Rigid, Tenderness - Neurological Exam Neurological exam: Alert, Oriented x3 - Psychiatric Exam Psychiatric exam: Normal Affect, Normal Mood - Skin Skin Exam: Dry, Intact, Normal Color, Warm Discharge Plan - Discharge Medications Prescriptions: cefTRIAXone [Rocephin] 2 gm IVPB DAILY #10 vial metFORMIN [glucOPHAGE] 850 mg PO BID #60 tab - Follow Up Plan Condition: STABLE Disposition: HOME/ ROUTINE Patient education suggested?: Yes Instructions: Urinary Tract Infection, Adult (DC), Sepsis, Adult (DC) Additional Instructions: Patient needs to return to infusion center for Rocephin 2g IV per heplock for a total of 7 more days. Follow up with PMD outpatient within 1 week. Referrals: [facility] [Provider Group] Stevenson Villegas Jr., MD [Staff Provider] -
[2018-08-03 08:32] VITALS: BP 122/75; TEMP 99.3; O2SAT 95
[2018-08-03] MEDS: Insulin Regular 100 units/ml SC SCH ×2 (09:01→13:00)
[2018-08-03] MEDS: Enoxaparin 40 mg Syringe SC SCH (09:02)
[2018-08-03] MEDS: POLYETHYLENE GLYCOL 3350 17 GM/Dose PACKET PO SCH (09:03)
[2018-08-03] MEDS: cefTRIAXone 2 GM in Sodium Chloride 0.9% 100 ML IVPB SCH (09:03)
== END 2018-08-03 15:00 | disposition home or self-care (01) | DRG 720 ==
LOC: H.ER 22:59 → H.ERHOLD 07-31 02:24 → H.TEL 07-31 03:51 → H.MEDSURG1 07-31 18:40
PROVIDERS: ADMIT Internal Medicine; ATTEND Internal Medicine
DX: A41.59 Other Gram-negative sepsis (principal); E10.65 Type 1 diabetes mellitus with hyperglycemia; Q62.31 Congenital ureterocele, orthotopic; E87.6 Hypokalemia; N13.6 Pyonephrosis; K59.00 Constipation, unspecified